=== PATIENT | female | born 1955 | race Caucasian/White ===

== ENCOUNTER 2018-05-01 11:51 | Outpatient (CLI) | payer OTHER, SELFPAY ==
[2018-05-01 13:48] LABS: TSH (W/Ref FT4) 1.51 uIU/mL (0.358-3.74)
[2018-05-02 09:01] LABS: Thyroglobulin Antibody 67 U/mL (<61); Thyroperoxidase Antibody <28 U/mL (<61)
== END 2018-05-01 12:11 ==
PROVIDERS: PCP Nurse Practitioner Family; Visit Provider Nurse Practitioner Family
DX: E04.9 Nontoxic goiter, unspecified (principal)
CPT/HCPCS: 36415; 86376; 84443

== ENCOUNTER 2018-05-02 01:32 | Outpatient (CLI) | payer OTHER, SELFPAY ==
--- NOTE | 2018-05-02 10:37 | DI.US_ITS ---
SYMPTOM/DIAGNOSIS: NONPAINFUL RT ASYMMETRIC GOITER, E04.9, FURTHER CHARACTERIZE GOITER, ? MALIGNANCY THYROID ULTRASOUND: The right thyroid lobe measures 5.0 by 2.3 by 2.2 cm. The left thyroid lobe measures 4.3 by 1.2 by 1.0 cm. The isthmus measures 3 mm. In the right thyroid lobe, there are four nodules, the most superior of which measures 2.4 by 2.1 by 1.2 cm. and has well circumscribed borders and is hyperemic and of mixed echogenicity. The mid pole gland measures 1.2 by 1.8 by 0.7 cm., is of mixed echogenicity and is hyperemic. This nodule is well circumscribed as well. In the lower pole of the right thyroid lobe, there is a 1.6 by 1.4 by 1.1 cm., well circumscribed nodule which is acoustically heterogeneous and hyperemic. In the inferior portion of the right thyroid lobe, there is a 7 by 7 by 3 mm. nodule which is well circumscribed with some increase in vascularity. In the left thyroid lobe, there are two nodules. The most superior of which appears cystic with calcifications and appears avascular measuring 10 by 6 by 6 mm. In the inferior portion of the left thyroid lobe, there is a 12 by 6 by 6 mm. nodule with increased color flow and somewhat irregular borders. IMPRESSION: There are findings consistent with multiple nodules in an enlarged thyroid gland or goiter. There is nothing specific to suggest a malignancy, however follow up evaluation with a repeat thyroid ultrasound in 4-6 months is suggested for further review. If there is a prior thyroid examination available on this patient, and if the study can be retrieved, then an addendum report will be filed.
== END 2018-05-02 01:52 ==
PROVIDERS: PCP Nurse Practitioner Family; Visit Provider Nurse Practitioner Family
DX: E04.9 Nontoxic goiter, unspecified (principal); E04.2 Nontoxic multinodular goiter
CPT/HCPCS: 76536

== ENCOUNTER 2018-10-31 10:42 | Outpatient (CLI) | payer OTHER, SELFPAY ==
[2018-10-31 13:08] LABS: FREE T4 0.85 ng/dL (0.76-1.46); TSH 1.56 uIU/mL (0.358-3.74)
[2018-10-31 20:51] LABS: T3, Total 121 ng/dl (97-169)
[2018-11-01 09:58] LABS: Thyroperoxidase Antibody <28 U/mL (<61)
== END 2018-10-31 11:02 ==
PROVIDERS: PCP Nurse Practitioner Family; Visit Provider Internal Medicine Endocrinology, Diabetes & Metabolism
DX: E04.1 Nontoxic single thyroid nodule (principal)
CPT/HCPCS: 36415; 84439; 84443; 84480; 86376

== ENCOUNTER 2021-03-14 04:11 | Outpatient (CLI) | payer OTHER, SELFPAY ==
[2021-03-14 09:00] LABS: Anion Gap 8.5 mmol/L (3-11); BUN 20 mg/dL (7-18); CO2 29.5 mmol/L (21.0-32.0); CREATININE 0.7 mg/dL (0.55-1.02); Calcium 9.2 mg/dL (8.5-10.1); Calculated LDL 101 mg/dL (<100); Chloride 106 mmol/L (98-107); Cholesterol 191 mg/dL (<200); Glucose 113 mg/dL (74-106); HDL Cholesterol 80 mg/dL (40-60); Potassium 3.8 mmol/L (3.5-5.1); Sodium 144 mmol/L (136-145); TSH (W/Ref FT4) 1.23 uIU/mL (0.36-3.74); Triglyceride 51 mg/dL (<150)
== END 2021-03-14 04:12 | disposition home or self-care (01) ==
LOC: LBO 04:11
PROVIDERS: PCP Nurse Practitioner Family; Visit Provider Nurse Practitioner Family
DX: E04.1 Nontoxic single thyroid nodule (principal); E04.9 Nontoxic goiter, unspecified; Z13.1 Encounter for screening for diabetes mellitus; Z13.220 Encounter for screening for lipoid disorders
CPT/HCPCS: 36415; 80048; 80061; 84443

== ENCOUNTER 2021-04-13 00:59 | Outpatient (CLI) | payer OTHER, SELFPAY ==
--- NOTE | 2021-04-13 06:45 | DI.US_ITS ---
Exam(s) US THYROID EXAM: US THYROID CLINICAL HISTORY: 1 year f/u thyroid nodule, goiter, e04.1,e04.9. TECHNIQUE: Ultrasound thyroid performed using standard protocol. COMPARISON: US US thyroid from 05/02/2018 FINDINGS: ISTHMUS: 1.6 mm RIGHT LOBE: Size: 4.6 x 1.9 x 2.7 cm Echogenicity: Heterogeneous. Vascularity: Normal. Nodules: There are multiple thyroid nodules present. There is a mixed cystic and solid nodule in the superior pole measuring 3 x 1.5 x 2 cm. It is hypoechoic. It has smooth margins and no internal ec hogenic foci. It is consistent with a TIRADS level 3 nodule. There is a 1.3 x 1.1 x 1.1 cm hypoecho ic mixed cystic and solid nodule in the lower pole. There does appear to be an internal calculi pres ent. The margins are smooth. This is consistent with a TIRADS level 4 nodule. There are also less than 1 cm nodules within the right lobe. LEFT LOBE: Size: 4.7 x 1.1 x 1.1 cm Echogenicity: Heterogeneous Vascularity: Normal. Nodules: Multiple 1 cm or less hypoechoic well-circumscribed mixed and solid nodules in the left lobe . No suspicious nodules are seen. No follow-up of these nodules is recommended based on their size and TIRADS level. OTHER FINDINGS: None. IMPRESSION: Multinodular thyroid gland as described above. DATA REPOSITORY:
--- NOTE | 2021-04-13 06:45 | DI.MAMMO_ITS ---
Exam(s) MAMMO SCREENING EXAM: MAMMO SCREENING CLINICAL HISTORY: screening,z12.39 TECHNIQUE: Bilateral full field digital CC and MLO mammographic images were obtained with 3D tomosyn thesis and utilizing computer aided detection (CAD). COMPARISON: Available for comparison. FINDINGS: Masses/Architectural Distortion: There is a focal asymmetric density in the medial central left breas t on the CC view. Microcalcifications: No suspicious pleomorphic-type are seen. Skin Thickening/Nipple Retraction: None. IMPRESSION: 1. focal asymmetric density in the medial central left breast on the CC view. 2. This area should be further evaluated with a spot compression view. Ultrasound may be indicated a t that time. BI-RADS Category 0 - Assessment Incomplete: Need additional imaging evaluation Breast Density - Category D - Extremely dense Breast density category C or D implies that the patient has dense breast tissue. Dense breast tissue is very common and is not abnormal but dense breast tissue can make it harder to find cancer on a ma mmogram. Also, dense breast tissue may increase their breast cancer risk. This information about the result of the mammogram report was provided to the patient to raise their awareness. Use this report when you speak with the patient about their risks for breast cancer, which includes their family hist ory. At that time, you may recommend for more screening tests (Ultrasound or MRI) as they might be us eful based on their risk. A negative radiographic report should not delay biopsy if a dominant or clinically suspicious mass is present. Up to ten percent of cancers are not identified on mammography. A negative report may reinforce clinical impression. Adenosis and dense breasts may obscure an underlying neoplasm. False positive reports average 6 to 10%. Patient will receive a letter notifying them of these results.
== END 2021-04-13 01:19 ==
PROVIDERS: PCP Nurse Practitioner Family; Visit Provider Nurse Practitioner Family
DX: E04.1 Nontoxic single thyroid nodule; E04.9 Nontoxic goiter, unspecified; Z12.31 Encounter for screening mammogram for malignant neoplasm of breast; R92.8 Other abnormal and inconclusive findings on diagnostic imaging of breast
CPT/HCPCS: 77063; 77067; 76536

== ENCOUNTER 2021-04-27 01:45 | Outpatient (CLI) | payer OTHER, SELFPAY ==
--- NOTE | 2021-04-27 | DI.US_ITS ---
Exam(s) MG MAMMO SCREEN CALL BACK UNI US BREAST LT LIMITED EXAM: MG MAMMO SCREEN CALL BACK UNI and U/S breast LT limited CLINICAL HISTORY: F/U ABNL MAMMO, LT BREAST, FOCAL ASYMMETRIC DENSITY ON CC VIEW. TECHNIQUE: Craniocaudal and mediolateral oblique Full Field Digital Mammography views of the left br east with Computer Aided Diagnosis followed by Tomosynthesis and left breast ultrasound. COMPARISON: Priors available for comparison. FINDINGS: Mammography/Tomosynthesis: Masses/Architectural Distortion: The area of concern is less prominent on the additional views. Microcalcifictions: No suspicious pleomorphic-type are seen. Skin Thickening/Nipple Retraction: None. Left breast US: The upper inner and lower inner quadrants of the left breast were evaluated sonograph ically. Echotexture: Normal appearance of the glandular tissue. Shadowing: No suspicious foci. Cyst: None. Solid lesions: None seen. Ductal dilation: None. IMPRESSION: 1. No definite evidence of malignancy is noted. 2. A six-month follow-up left mammogram is requested for re-evaluation. 3. The findings were discussed with the patient on the date of the examination. BI-RADS Category 3 - 6 month - Probably Benign Finding: Recommend follow-up imaging in 6 months Breast Density - Category D - Extremely dense Breast density Category C or D implies that the patient has dense breast tissue. Dense breast tissue can make it harder to find cancer on a mammogram. Dense breast tissue is also associated with an incr eased risk of breast cancer. This information about the result of the mammogram report was provided to the patient to raise their awareness. Use this report when you speak with the patient about their risks for breast cancer, which includes their family history. At that time, you may recommend additional screening tests (Ultrasoun d or MRI) as these tests may add significant information. A negative radiographic report should not delay biopsy if a dominant or clinically suspicious mass is present. Up to ten percent of cancers are not identified on mammography. A negative report may reinforce clinical impression. Adenosis and dense breasts may obscure an underlying neoplasm. False positive reports average 6 to 10%. Patient will receive a letter notifying them of these results.
== END 2021-04-27 02:05 ==
PROVIDERS: PCP Nurse Practitioner Family; Visit Provider Nurse Practitioner Family
DX: Z12.31 Encounter for screening mammogram for malignant neoplasm of breast (principal); R92.8 Other abnormal and inconclusive findings on diagnostic imaging of breast
CPT/HCPCS: 76642; 77063; 77067

== ENCOUNTER → 2021-10-31 02:18 | Outpatient (CLI) | payer MEDICARE, OTHER, SELFPAY ==
--- NOTE | 2021-10-31 07:45 | DI.MAMMO_ITS ---
Exam(s) MAMMO DIAGNOSTIC UNI EXAM: MAMMO DIAGNOSTIC UNI -LEFT CLINICAL HISTORY: 6 month f/u abnormal mammo,R92.8. TECHNIQUE: BOTH CC AND MLO VIEWS of the left breast + unilateral LEFT spot mammographic images were obtained with 3D tomosynthesis technique and utilizing computer aided detection (CAD). COMPARISON: Prior mammograms were reviewed, the most recent being APRIL 2021. FINDINGS: The fibroglandular tissue pattern of the left breast is again noted be very dense, this somewhat decr easing sensitivity mammogram finding hidden underlying lesions. The previously described asymmetric density best seen on the CC view, medial of center approximately 4 cm in from the nipple is again noted. We performed additional spot compression CC view over this area. This distal spot view appears to re veal an oval noncalcified 8 x 6 millimeter nodule. Ultrasound recommended there are no malignant-daniella earing microcalcification groups in this region or elsewhere in the left breast. No new architectura l distortion or skin thickening-traction IMPRESSION: Very dense fibroglandular tissue pattern in the left breast. Asymmetric density-possible nodule as d escribed above. Complete breast ultrasound is recommended. BI-RADS Category 0 - Assessment Incomplete: Need additional imaging evaluation Breast Density - Category D - Extremely dense Breast density Category C or D implies that the patient has dense breast tissue. Dense breast tissue can make it harder to find cancer on a mammogram. Dense breast tissue is also associated with an incr eased risk of breast cancer. This information about the result of the mammogram report was provided to the patient to raise their awareness. Use this report when you speak with the patient about their risks for breast cancer, which includes their family history. At that time, you may recommend additional screening tests (Ultrasoun d or MRI) as these tests may add significant information. A negative radiographic report should not delay biopsy if a dominant or clinically suspicious mass is present. Up to ten percent of cancers are not identified on mammography. A negative report may reinforce clinical impression. Adenosis and dense breasts may obscure an underlying neoplasm. False positive reports average 6 to 10%. Patient will receive a letter notifying them of these results.
== END ==
PROVIDERS: PCP Nurse Practitioner Family; Visit Provider Nurse Practitioner Family
DX: N63.20 Unspecified lump in the left breast, unspecified quadrant (principal); R92.2 Inconclusive mammogram
CPT/HCPCS: 77061; 77065; G0279

== ENCOUNTER → 2021-11-08 01:13 | Outpatient (CLI) | payer MEDICARE, OTHER, SELFPAY ==
--- NOTE | 2021-11-08 | DI.US_ITS ---
Exam(s) US BREAST LT COMPLETE EXAM: US BREAST LT COMPLETE CLINICAL HISTORY: F/U MAMMO, DENSE TISSUE,ASYMMETRIC DENSITY, ? NODULE. TECHNIQUE: Complete ultrasound of the left breast was performed including all 4 quadrants, the retro areolar region, and the ipsilateral axilla. COMPARISON: Prior mammograms were reviewed. Prior ultrasound April 2021 was also reviewed most r ecent mammogram 10/31/2021. FINDINGS: There is no evidence of solid or significant cystic lesions in all 4 quadrants, this implying that th e finding on the mammogram is either asymmetric tissue or possibly a benign mammary lymph node. No ultrasound findings in the immediate retroareolar region Scanning of the left axilla is negative for adenopathy. IMPRESSION: Negative complete left breast ultrasound. Appropriate follow-up is to keep this patient on her yearly mammogram schedule, with earlier imaging if a self detected breast change is noted.. BI-RADS Category 2 - Benign Findings Breast Density - Category D - Extremely dense Breast density Category C or D implies that the patient has dense breast tissue. Dense breast tissue can make it harder to find cancer on a mammogram. Dense breast tissue is also associated with an incr eased risk of breast cancer. This information about the result of the mammogram report was provided to the patient to raise their awareness. Use this report when you speak with the patient about their risks for breast cancer, which includes their family history. At that time, you may recommend additional screening tests (Ultrasoun d or MRI) as these tests may add significant information. A negative radiographic report should not delay biopsy if a dominant or clinically suspicious mass is present. Up to ten percent of cancers are not identified on mammography. A negative report may reinforce clinical impression. Adenosis and dense breasts may obscure an underlying neoplasm. False positive reports average 6 to 10%. Patient will receive a letter notifying them of these results.
== END ==
PROVIDERS: PCP Nurse Practitioner Family; Visit Provider Nurse Practitioner Family
DX: R92.2 Inconclusive mammogram (principal)
CPT/HCPCS: 76642

== ENCOUNTER 2022-07-11 03:27 | Outpatient (CLI) | payer MEDICARE, OTHER, SELFPAY ==
[2022-07-11 09:56] LABS: Hemoglobin A1C 5.6 % (<5.7)
[2022-07-11 10:09] LABS: Ferritin 190 ng/mL (8-252); TSH (W/Ref FT4) 2.25 uIU/mL (0.36-3.74)
[2022-07-11 10:17] LABS: Iron 76 ug/dL (50-170); Total Iron Binding Capacity 283 ug/dL (250-450); Transferrin Sat 27 % (15-50)
== END 2022-07-11 03:28 | disposition home or self-care (01) ==
LOC: LBO 03:27
PROVIDERS: PCP Nurse Practitioner Family; Referring Provider Nurse Practitioner Family; Visit Provider Nurse Practitioner Family
DX: E04.2 Nontoxic multinodular goiter (principal); L65.9 Nonscarring hair loss, unspecified; R73.01 Impaired fasting glucose
CPT/HCPCS: 36415; 82728; 83036; 83540; 83550; 84443

== ENCOUNTER → 2023-08-01 03:02 | Outpatient (CLI) | payer MEDICARE, OTHER, SELFPAY ==
--- NOTE | 2023-08-01 07:00 | DI.MAMMO_ITS ---
Exam(s) MAMMO SCREENING EXAM: MAMMO SCREENING CLINICAL HISTORY: screening,Z12.39. TECHNIQUE: Bilateral full field digital CC and MLO mammographic images were obtained with 3D tomosyn thesis and utilizing computer aided detection (CAD). COMPARISON: 2015 through 2021 FINDINGS: Masses: None seen. Architectural Distortion: None seen. Microcalcifications: No suspicious pleomorphic-type are seen. Skin Thickening/Nipple Retraction: None. IMPRESSION: 1. No significant interval change with no specific features of malignancy noted. 2. Unless there is more urgent need, annual screening mammography is recommended, as per [place] [employer] guidelines. BI-RADS Category 1-negative Breast Density - Category D - extremely dense Breast Density Category D: The mammogram demonstrates the patient's breast tissue is dense. Dense lluvia ast tissue is very common and is not abnormal but dense breast tissue can make it harder to find canc er on a mammogram. Also, dense breast tissue may increase their breast cancer risk. This information about the result of the mammogram report was provided to the patient to raise their awareness. Use th is report when you speak with the patient about their risks for breast cancer, which includes their f amily history. At that time, you may recommend for more screening tests (Ultrasound or MRI) as they m ight be useful based on their risk. A negative radiographic report should not delay biopsy if a dominant or clinically suspicious mass is present. Up to ten percent of cancers are not identified on mammography. A negative report may reinforce clinical impression. Adenosis and dense breasts may obscure an underlying neoplasm. False positive reports average 6 to 10%.
== END ==
PROVIDERS: PCP Nurse Practitioner Family; Visit Provider Nurse Practitioner
DX: Z12.31 Encounter for screening mammogram for malignant neoplasm of breast (principal); R92.343 Mammographic extreme density, bilateral breasts
CPT/HCPCS: 77063; 77067

== ENCOUNTER 2023-08-15 05:38 | Outpatient (CLI) | payer MEDICARE, OTHER, SELFPAY ==
[2023-08-15 08:42] LABS: Abs Immature Grans 0.01 10^3/uL (0.0-0.06); Absolute Basophil Count 0.04 10^3/uL (0.0-0.2); Absolute Eosinophil Count 0.03 10^3/uL (0.0-0.7); Absolute Lymphocyte Count 1.22 10^3/uL (1.2-3.4); Absolute Monocyte Count 0.51 10^3/uL (0.1-0.8); Absolute Neutrophil Count 4.59 10^3/uL (1.2-6.7); Basophils % 0.6; Eosinophils % 0.5; HCT 42.9 % (36.0-46.0); HGB 14.3 g/dL (11.2-15.7); Immature Grans % 0.2; Lymphocytes % 19.1; MCH 31.4 pg (27.0-33.0); MCHC 33.3 % (32.0-36.0); MCV 94 fL (80-95); MPV 9.2 fL (8.0-11.0); Neutrophils % 71.6; Platelet Count 239 10^3/uL (130-400); RBC 4.55 10^6/uL (3.93-5.22); RDW 12.3 % (11.7-14.6); RDW-SD 42.7 fL
[2023-08-15 09:01] LABS: Hemoglobin A1C 5.8 % (<5.7)
[2023-08-15 09:11] LABS: Calculated LDL 98 mg/dL (<100); Cholesterol 181 mg/dL (<200); HDL Cholesterol 73 mg/dL (40-60); Triglyceride 53 mg/dL (<150)
== END 2023-08-15 05:39 | disposition home or self-care (01) ==
LOC: LBO 05:38
PROVIDERS: PCP Nurse Practitioner Family; Referring Provider Nurse Practitioner; Visit Provider Nurse Practitioner
DX: E78.5 Hyperlipidemia, unspecified (principal); R73.01 Impaired fasting glucose; Z13.220 Encounter for screening for lipoid disorders; Z82.49 Family history of ischemic heart disease and other diseases of the circulatory system; E04.2 Nontoxic multinodular goiter
CPT/HCPCS: 36415; 80061; 83036; 84443; 85025